=== PATIENT | female | born 1970 | race Caucasian/White ===

== ENCOUNTER → 2016-03-29 | Outpatient (CLI) | payer BC, OTHER ==
--- NOTE | ~2016-03-29 | EKG ---
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
== END ==
LOC: CV 11:44
DX: E10.8 Type 1 diabetes mellitus with unspecified complications (principal); I10 Essential (primary) hypertension